=== PATIENT | female | born 1940 | race Caucasian/White ===

== ENCOUNTER 2019-01-07 10:11 | Inpatient (IN) | payer MEDICARE, SELFPAY ==
[2018-12-31 09:53] VITALS: BMI 22.3
[2019-01-07] VITALS (11 sets, daily range): BP systolic 106–167; BP diastolic 51–73; PULSE 70–81; RESP 12–16; TEMP 36.2–37.1; O2SAT 93–99; BMI 22.0
--- NOTE | 2019-01-07 | DI.RAD.S_ITS ---
PROCEDURE: [id number] W PEL IF PERFORMED INDICATIONS: INTRA OPERATIVE LEFT HIP TECHNIQUE: AP pelvis with lateral view(s) of the left hip(s). COMPARISON: [facility], CR, XR HIP W PEL IF DONE LT 2V, 01/07/2019, 15:45. FINDINGS: Bones: No fractures or dislocations. Pelvic ring appears intact. No suspicious bony lesions. The study shows expected intraoperative placement of sizing devices for preparation in anticipation of placement of the final components of left total hip arthroplasty. Soft tissues: The visualized bowel gas pattern is normal. No suspicious soft tissue calcifications. IMPRESSION: Normal intraoperative preparation for placement of final components of left total hip arthroplasty. Please also refer to subsequent views of the postoperative left hip establishing normal alignment. Dictated by: Teto Roach M.D. on 01/07/2019 at 17:18 Approved by: Teto Roach M.D. on 01/07/2019 at 17:19
--- NOTE | 2019-01-07 07:00 | DI.RAD.S_ITS ---
PROCEDURE: XR HIP W PEL IF DONE LT 2V INDICATIONS: post op TECHNIQUE: AP pelvis with lateral view(s) of the left hip(s). [facility] LATERAL HIP LEFT, 07/29/2018, 9:58. FINDINGS: Bones: No fractures or dislocations. Pelvic ring appears intact. No suspicious bony lesions. Soft tissues: The visualized bowel gas pattern is normal. No suspicious soft tissue calcifications. IMPRESSION: Left hip arthroplasty shows no evidence of device loosening or disruption. Normal alignment. Dictated by: Teto Roach M.D. on 01/07/2019 at 16:10 Approved by: Teto Roach M.D. on 01/07/2019 at 16:11
[2019-01-07] MEDS: VANCOMYCIN 1,000 MG/200 ML PIGGYBACK 200 MG IV (11:01)
[2019-01-07] MEDS: PREGABALIN 75 MG CAPSULE PO (11:01)
[2019-01-07] MEDS: ACETAMINOPHEN 325 MG TABLET 975 MG PO ×2 (11:02→20:33)
[2019-01-07] MEDS: MELOXICAM 7.5 MG TABLET 15 MG PO (11:02)
[2019-01-07] MEDS: LACTATED RINGERS 1,000 ML 42 ML IV ×2 (11:07→13:23)
--- NOTE | 2019-01-07 11:57 | P.OP_ITS ---
Operative Date/Time/Diagnoses Date of procedure: 01/07/19 Time of procedure: 12:31 Pre-op diagnosis: left hip OA Post-op diagnosis: same Procedure & Clinicians Procedure: left total hip arthroplasty Same procedure as scheduled: Yes Indications: The patient has had progressively worsening left hip pain with radiographic changes consistent with arthritis. Non-operative management has failed and the patient has requested total hip replacement. The risks, benefits and alternatives to surgery were discussed with the patient prior to proceeding. Risks discussed included, but were not limited to, failure to relieve pain, leg length discrepancy, dislocation, stiffness, infection, nerve damage, deep venous thrombosis, pulmonary embolism, stroke, coma, heart attack, permanent paralysis and , as well as the potential need for eventual revision of the prosthetic. Surgeon: Noy Talley Consumer Safety Inspector: Sachin Rojas Anesthesia Type: General and Spinal Operative Notes Findings: Severe left hip osteoarthritis, good stability Closure Type: primary Specimen(s): none sent Prosthetic devices, grafts, tissues, transplants, or devices: Talley and Nephew 46 mm R3, size 3 anthology, 32 -3 femoral head Estimated Blood Loss (mL): 250 Blood products transfused: none Procedure in detail: The patient was brought to the operating room. Patient was carefully positioned in the supine position. Time-out was performed and antibiotics were given. Anesthesia was induced. She was positioned in the on the table in order to allow hyperextension of the hip. The left lower extremity was prepped and draped in a standard sterile fashion. An anterior left hip incision was made 1 fingerbreadth lateral to the anterior superior iliac spine and extended distally towards the greater trochanter. Dissection was carried out through skin and subcutaneous tissues. The skin and subcutaneous tissues were carefully injected with Lidocaine with epi. Superficial hemostasis was achieved. The fascia over the tensor fascia nanda was defined and incised with a knife. Two Allis clamps were used to grasp the fascia. Tensor fascia nanda was retracted laterally. A gelpi retractor was placed. Dissection was carried out down along the neck. The circumflex vessels were carefully identified and cauterized with the Aqua Mantis. There was good visualization of the femoral neck. A Cobra was placed superior to the neck and the gluteus fibers were carefully stripped from that superior aspect of the capsule. A 2nd retractor was placed along the inferior aspect of the neck. The rectus insertion along the capsule was partially released. A 3rd retractor that was then gently placed over the rim of the acetabulum under the rectus. Capsule was carefully incised and released from the intertrochanteric line circumferentially superior to the mid sagittal line and inferiorly to the mid sagittal line until the lesser trochanter was palpable. A tag stitch was placed both in the superior and inferior limb of the capsular insertion. Along the acetabulum capsule was also released up to the mid sagittal 12:00 position. A portion of the labrum was resected. A saw was used to perform an osteotomy at the level of the intertrochanteric line and the junction of the superior femoral neck leaving approximately 1 finger breath of residual inferior neck above the lesser trochanter. A 2nd cut was made along the femoral neck at the base of the head and a napkin ring of neck was removed. Corkscrew was placed in the femoral head and the head was removed without difficulty. Retractors were then repositioned around the acetabulum. Residual labrum was resected and additional osteophytes were removed. A reamer that was 4 mm below the templated size was placed by hand in the acetabulum and it was reamed to centralize the acetabulum. It was then reamed up to 2 under the templated size and fluoroscopy was brought in to confirm the position of the reaming and depth of reaming. I reamed 1 under the anticipated size and touched the rim with line to line reaming. A trial cup was placed and noted that it was appropriately sized and fluoroscopy confirmed position and depth. The component was open and inserted without difficulty fluoroscopic imaging was used to confirm that the cup had been adequately seated and was well positioned. Neutral poly trial liner was placed. The cup was tested and noted to be stable. Attention was then directed to the femur. The femur was gently hyperextended additional capsular release was performed as needed in order to allow adequate visualization of the proximal femur with elevation of the femur. Patient was placed in a hyperextended slightly adducted position with maximum external rotation. Box osteotome was used to check for any residual neck as well as sclerotic bone along the trochanter. [place] pepper was placed in the femur. Additional broaching was performed. Canal finder was used to determine the alignment of the canal and position. Size 1 broach was placed. The canal was then appropriately broached up to the templated size as long as there was adequate stability of the broach and serial advancement of the broach without excessive impingement. Specific attention was directed at avoiding varus attempting to direct the distal aspect of the broach more anteriorly and avoiding excessive anteversion. Trial reduction showed acceptable range of motion, good stability, no posterior impingement, church of leg length and appropriate lateral shuck. I also hyperflexed the hip and checked that there was no impingement anteriorly and there was good stability with flexion, adduction and internal rotation. Final neutral poly was placed without difficulty. Marcaine and Exparel were injected.. The stem was placed without difficulty. Repeat trial reduction and x-ray showed acceptable overall position, length, and no evidence of the femoral fracture. Final head was placed. Wound was meticulously irrigated with normal saline. The hip was reduced and additional Exparel and Marcaine were injected. The capsule was closed with interrupted nonabsorbable sutures. The fascia of the tensor was closed with interrupted and running Vicryl. No drain was placed. Any tensor fascia nanda muscle that appeared to be contused or injured which was a minimal amount was carefully resected. Capsule around the tensor was injected with Exparel and Marcaine. The skin was closed with barbed stitches for the subcutaneous tissue and skin. We also used surgical glue. The wound was dressed sterilely. Brief Betadine soak was also used and was meticulously irrigated w ith normal saline. Patient was transferred to recovery room in satisfactory condition. Complications: none Post-operative Condition: stable Disposition: Acute Care Plan for aftercare: The patient will be maintained on a standard total hip replacement protocol with weight bearing as tolerated and anterior hip precautions. The patient will receive Aspirin and sequential compression devices for DVT prophylaxis. The patient will be discharged home when safe for the home environment.
--- NOTE | 2019-01-07 11:57 | PM.PREOP ---
Pre-operative Note Interval Note History & Physical reviewed/Exam performed by Physician: Yes Changes to H&P: No
[2019-01-07] MEDS: CEFAZOLIN 2 GM/100 ML FROZ.PIGGY IV ×2 (12:15→20:30)
[2019-01-07] MEDS: TRANEXAMIC ACID 1,000 MG VIAL 1000 MG INJ ×2 (12:39→14:52)
--- NOTE | 2019-01-07 13:02 | SUR.OPER ---
Supine, head on pillow, torso on pink pad positioner. Iliac crest at flex of foot end of table. Gel roll under operative hip. Both arms secured on arm boards <90 degrees abduction.
[2019-01-07] MEDS: SODIUM CHLORIDE IRRIG SOLUTION 250 ML, POVIDONE-IODINE SPONGE STICKS 1 APPLIC IRR (13:09)
[2019-01-07] MEDS: BUPIVACAINE 0.25% W/ EPI 30 ML VIAL 60 ML INJ (13:09)
[2019-01-07] MEDS: BUPIVACAINE LIPOSOME 266 MG/20 ML VIAL INJ (13:10)
[2019-01-07] MEDS: SODIUM CHLORIDE IRRIG SOLUTION 250 ML, EPINEPHrine 1 MG IRR (13:13)
--- NOTE | 2019-01-07 16:46 | PC.NURSE ---
Pt arrived from PACU alert/oriented. Aquacell Dsg to anterior left hip CDI IVF into right hand infusing as per orders. Bilat.calf SCD in place Orineted to room ans call system. Call light w/in reach, bed alrm on for pt safety.
[2019-01-07] MEDS: OXYCODONE IR 5 MG TABLET PO (17:22)
[2019-01-07] MEDS: LACTATED RINGERS 1,000 ML 125 ML IV (17:23)
[2019-01-07] MEDS: ASPIRIN EC 81 MG TABLET PO (20:30)
--- NOTE | 2019-01-07 22:49 | PC.NURSE ---
A&OX3. 93%RA. CMS+. L. hip dressing CDI. 1PA to the BR. pt walked around the room. PIV. pt drinking lots of fluid. pt voiding without difficulty. pain controlled oxycodone. call light in reach. bed alarm active.
[2019-01-08 00:10] VITALS: BP 110/48; PULSE 75; RESP 16; TEMP 36.6; O2SAT 97
[2019-01-08] MEDS: CEFAZOLIN 2 GM/100 ML FROZ.PIGGY IV (03:34)
[2019-01-08 05:15] VITALS: BP 114/62; PULSE 97; RESP 16; TEMP 36.5; O2SAT 97
[2019-01-08 06:17] LABS: Hematocrit 32.4 % (36-46); Hemoglobin 10.6 g/dL (12.0-16.0)
--- NOTE | 2019-01-08 07:46 | PM.DS.1 ---
History of Present Illness History of Present Illness Date Patient Seen: 01/08/19 Time Patient Seen: 07:46 Chief complaint: [id number] Narrative: Pain is moderate. Denies fever chills. No nausea vomiting. Patient does have assistance at home. Patient has been up using the restroom. She has 3 steps into her house. Discharge Providers Provider Date of admission: 01/07/19 10:11 Discharge Date: 01/08/19 Consults: 01/07/19 07:00 Consult to Anesthesiology Routine Comment: Consulting Provider: Anesthesiologist Reason for consultation: Regional block for post operative pain control 01/07/19 16:30 Consult to Discharge Planning Routine Comment: Consult to Physical Therapy Evaluate & Treat Comment: Physician Instructions: post op JAVIER protocol Consult to Respiratory Therapy Evaluate & Treat Comment: Physician Instructions: Evaluate and treat Discharge provider: Yoseph Cordero PA-C Summary Hospital Course Discharge Diagnosis: Status post left total hip arthroplasty secondary to severe left hip DJD Hospital Course: Procedure: left total hip arthroplasty Same procedure as scheduled: Yes Indications: The patient has had progressively worsening left hip pain with radiographic changes consistent with arthritis. Non-operative management has failed and the patient has requested total hip replacement. The risks, benefits and alternatives to surgery were discussed with the patient prior to proceeding. Risks discussed included, but were not limited to, failure to relieve pain, leg length discrepancy, dislocation, stiffness, infection, nerve damage, deep venous thrombosis, pulmonary embolism, stroke, coma, heart attack, permanent paralysis and , as well as the potential need for eventual revision of the prosthetic. Surgeon: Noy Talley Bakery Worker: Sachin Rojas Anesthesia Type: General and Spinal Operative Notes Findings: Severe left hip osteoarthritis, good stability Closure Type: primary Specimen(s): none sent Prosthetic devices, grafts, tissues, transplants, or devices: Talley and Nephew 46 mm R3, size 3 anthology, 32 -3 femoral head Estimated Blood Loss (mL): 250 Blood products transfused: none Patient admitted to the hospital for left total hip arthroplasty. Patient consented to the same. Patient taken to the operating room underwent left total hip arthroplasty. Patient back in her room recovering well as in stable condition. Status at Discharge Cognitive/behavioral status at discharge: at baseline, oriented Functional status at discharge: uses cane/walker Overall status at discharge: patient is progressing back to baseline Time Spent with Patient Time spent: Less than 30 minutes Exam Vital Signs (past 8 hours): - 01/08/19 00:10 01/08/19 05:15 Temperature 97.8 F 97.7 F Pulse Rate 75 97 H Respiratory Rate 16 16 Blood Pressure 110/48 L 114/62 Pulse Oximetry 97 97 Oxygen Delivery Method Room Air Oxygen Flow Rate 0 Narrative Exam Narrative: Pleasant 78-year-old female resting comfortably in bed in no apparent distress. Left hip dressing is clean, dry and intact. Left lower leg is warm and dry. SCDs on and functioning. Motor function is intact distally. Sensation grossly intact to light touch. Objective Labs Result Diagrams: 01/08/19 05:55 Labs: Laboratory Results - last 24 hr 01/08/19 05:55 Hgb 10.6 L Hct 32.4 L Discharge Plan Discharge Plan Patient Disposition: Home Discharge comment: DC home today after PT Discharge Med Rec/Prescriptions Prescriptions: Continued levothyroxine 150 mcg Tablet 150 mcg PO DAILY RF: 0 estradiol [Vagifem] 10 mcg Tablet 10 mcg VAGINAL 2XW RF: 0 Follow up/Referrals: Noy Talley MD [Physician] - (1 wk) Provider Discharge Instructions Diet: Diet as Tolerated Activity: Weightbearing as tolerated, anterior hip precautions Cold/Heat Therapy: Apply ice as needed Other treatments: Aspirin 81 mg b.i.d., Tylenol 500 mg q.4 hours, ibuprofen 400 mg q.4 hours Skin/Wound/Dressing Care Report to your healthcare provider any signs of infection, such as:: chills, fever, increased pain, unusual drainage and unusual redness Dressing: Keep dressing clean and dry Quality VTE Deep Vein Thrombosis/Pulmonary Embolism Present on Admission: No
[2019-01-08] MEDS: IBUPROFEN 600 MG TABLET PO (08:19)
[2019-01-08] MEDS: ASPIRIN EC 81 MG TABLET PO (08:19)
[2019-01-08] MEDS: DOCUSATE 100 MG CAPSULE PO (08:19)
[2019-01-08] MEDS: ACETAMINOPHEN 325 MG TABLET 975 MG PO (08:19)
[2019-01-08 08:33] VITALS: BP 122/63; PULSE 74; RESP 14; TEMP 36.9; O2SAT 94
--- NOTE | 2019-01-08 09:11 | CM.DANOTE ---
DCP Assessment: EMR reviewed. Patient is a 78 yr old female who lives at home with her . Patient PC is not listed. patient had a L JAVIER preformed by Dr. Talley. patient is completely I at baseline. CM met with patient at the bedside and explained CM/RN role. Patient was alert and oriented. patient stated she has a shower chair and a FWW at home. Insurance:1st payer: Medicare. 2nd payer: AARP Plan: Pending PT evaluations plan is to D/c home when medically stable. Patient has her daughter Kelsea her to help her with recovery and OP PT set up with [facility] for next Sunday01/15/2019. No identified D/C planning needs noted at this time. Uzma Talley RN Discharge Planning/Care Management Advanced directive, confirm from FAMILY Start: 01/07/19 16:37 Freq: Q24H Status: Active Protocol: Document 01/07/19 16:30 KMD (Rec: 01/07/19 16:50 KMD [id number]) Advance Directive, confirm on record Time 16:49 Person contacted Patient Copy received No Document 01/07/19 16:37 HCW (Rec: 01/07/19 19:03 HCW [id number]) Advance Directive, confirm on record Time 16:49 Person contacted Patient Copy received No CM Discharge Assessment Start: 01/08/19 09:08 Freq: Status: Active Protocol: Document 01/08/19 09:08 HS (Rec: 01/08/19 09:11 HS [id number]) Discharge Planning Assessment Assigned Carpet Mechanic Uzma Talley RN DPOA/Assigned Designee Name Kelsea ( daughter) Contact Information [phone] Advance Directives? Yes: Contained within their will History Provided By Patient Prior Living Arrangements House Household Members spouse Comment Daughter will be staying with patient for a month Type of transporation used prior to Drives own vehicle admit Independent with ADL's Yes Is patient alert and oriented? Yes Caregiver for Another No Patient/Family Preference OP PT Therapy Discharge Plan Home Transportation Arrangement Daughter will pick patient up. Whiteboard Updated in Patient Room with Yes name and ext. # of Carpet Mechanic Review Status In Process Next Review Type Continued Stay Review Pre-Anesthesia Assessment Start: 12/31/18 09:53 Freq: Status: Active Protocol: Document 12/31/18 09:53 CAB (Rec: 12/31/18 10:08 [facility] [id number]) Pre-Anesthesia Assessment PAC Comment Spoke w/PCP Dr. Rivera re abnormal pre-op EKG-LBBB. Pt is very active, denies any cardiac symptoms of CP, SOB, lightheadedness, dizziness. Last EKG greater than 20 year ago. PCP has no concerns for pt to go forward with surgery. Reviewed EKG and above information with Dr. Delaney, ok to proceed Patient Also Known As (AKA) Neda Patient Information Reviewed Via Chart Review Diagnostic Results BMP/CMP,CBC,EKG,Urinalysis Comment Outside EKG/labs scanned to record Primary Care Provider Aubrie Rivera Seen Specialist in Last 12 Months Yes Specialist Seen Orthopedist Primary Language Tam[place] Childcare Teacher Required No Height 160.02 cm Weight 57.153 kg Body Mass Index (BMI) 22.3 Hearing Ability Hard of Hearing,Use of Hearing Aid Visual Assist Glasses Dentition Type Teeth, Natural Present Barriers to Learning None Hx Anesthesia Reactions No Hx Family Anesthesia Reaction Yes: Granddaughter-Trouble breathing s/p surgery, required intubation Hx Malignant Hyperthermia No Hx Blood Transfusions No Anesthesia Review Requested No: Reviewed pre-op EKG w/Dr. Delaney alcohol intake current alcohol intake frequency 0-2 drinks per day Smoking Status Never smoker Substance Use Type does not use Pain Present Pain Reported Musculoskeletal Symptoms Abnormal Gait,Difficulty Walking,Joint Pain,Numbness History of Falling (Recent or History of No ) Patient is completely paralyzed or No completely immobile Prosthesis or Orthotic Device Cane Mental Status Oriented to own ability Is patient on oxygen? No Does patient have SOLANO/SOB No Hx Sleep Apnea No Currently Taking a Beta Anusha No Can You Climb a Flight of Stairs Without Yes SOB Hx Chest Pain No Hx SOB No Hx Syncope or Dizziness No Anti-Coagulant Therapy No Has a Assortment Planner No Cardiac Testing No Hx Pacemaker/ICD No Pacemaker Rep Required? No Cardiac Clearance Received Not Applicable Diet Type At Home Regular dysphagia No Bladder Pattern Nocturia Urinary Catheter Present No Hx Urinary Self Catheterization No Diabetes No HgbA1C 5.5 Date 12/05/18 Patient No Lactating No Hx Drug Resistant Organism No Presence of External or Internal Medical Yes: Bilateral eye lens Devices Have you traveled outside the [facility] in the last 30 days? Marital Status Lives With spouse Prior Living Arrangements House Number of Floors (Floors) One Floor Support System Friend(s),Spouse Does the Patient Have Assistance After Yes Surgery Patient Discharge Plan Description Return Home Comment Pt advised 1 night length of stay per surgeon's office Feels Safe in Current Environment Yes Been Physically Hurt or Threatened By a No Person in Current Environment Do you have thoughts of harming yourself None or others? Are you currently considering suicide? No Do you have a plan to hurt yourself or No Plan others? Do You Have Any Spiritual Beliefs That No May Affect Your HC Choices? Do You Have Any Cultural Practices That No May Affect Your HC Choices? Comment Yogi Who Can We Speak to About Patient's Care Family, friends Identifying Code for Release of Patient Declines to issue Information Health Care Proxy/Next of Kin Grzegorz () Health Care Proxy Emergency Contact Name Grzegorz () Emergency Contact Advance Directives? Yes: Contained within their will Power of Electrical & Instrumentation Supervisor Yes Power of Electrical & Instrumentation Supervisor Name Grzegorz () Power of Electrical & Instrumentation Supervisor PAC Instructions Do not shave/clip surgical site,Durable medical equipment ,Medications to take/avoid, Nasal antibiotic,No ETOH/ petroleum product on skin DOS, NPO,Post-op transportation,Pre -surgical wash,Sturdy shoes/ comfortable clothes,Do not bring valuables and remove jewelry
[2019-01-08 09:27] VITALS: O2SAT 98
--- NOTE | 2019-01-08 11:39 | PT.IIE ---
Current Diagnoses Unilateral primary osteoarthritis, left hip (01/07/19) Surgery Performed Operation Date: 01/07/19 12:15 Actual Procedures p Total Hip Arthroplasty/Anterior Approach(Left) - Noy Talley MD Surgical History (Last Updated 01/03/19 @ 13:18 by Carmita Mac, RN) History of right cataract surgery (Acute) Hx of blepharoplasty (Acute) Hx of tonsillectomy (Acute) Hx of tubal ligation (Acute) Medical History (Last Updated 01/03/19 @ 13:19 by Carmita Mac RN) Diverticulitis (Acute) Hypothyroid (Acute) LBBB (left bundle branch block) (Acute) Numbness (Acute) Osteoarthritis (Acute) Physical Therapy Inpatient Evaluation/Re-Eval M1 PT/OT-IP Prior Functional Status Start: 01/08/19 08:07 Freq: NEEDED Status: Discharge Protocol: Document 01/08/19 09:22 (Rec: 01/08/19 11:38 [id number]) Medical Review Prior Functional Status Medical History Reviewed Yes Diet/Fluid Consistency Regular Communication no deficits noted. able to make needs known Mobility and Gait independent with home and community mobility without AD in general. But she did use [facility] for long distance walking occasionally due to hip pain. Pt also went to water aerobic class/ yoga class 2-4x/week. Activities of Daily Living and IADL's Independent with ADLs and IADLs Social History Household Members spouse Living Arrangements House Number of Floors (Floors) One Floor Number of Stairs To Enter/Railing? 3 MICHEL with L rail. Home Environment Walk in Shower Home Equipment Front Wheel Walker,Straight Cane,Bedside Commode,Shower Seat with Backrest,Hand Held Shower Employment Status Retired Additional Social History Comment Pt lives with her in [facility] but he will be out of town for the next few days. Pt does have friends to pick her up after d/c and her dtr will stay with pt until pt 's spouse comes back. Pt will attend PT at [facility] starting from next week. M2 PT-IP Current Condition Start: 01/08/19 08:07 Freq: NEEDED Status: Discharge Protocol: Document 01/08/19 09:22 (Rec: 01/08/19 11:38 [id number]) Physical Therapy Current Condition Current Condition Evaluation Date 01/08/19 Treatment Diagnosis L JAVIER (ant), difficulty in walking Onset Date 01/07/19 Precautions Anterior Hip Precautions No Hip Extension,No Hip External Rotation Weight Bearing Status Weight Bearing Status Weight Bear as Tolerated M3 PT-IP Subjective Start: 01/08/19 08:07 Freq: NEEDED Status: Discharge Protocol: Document 01/08/19 09:22 (Rec: 01/08/19 11:38 [id number]) Subjective Physical Therapy Visit Type Type Initial Evaluation Visit Start Time 09:22 Visit Stop Time 09:52 Total Visit Minutes 30 Notes co-tx with SPT William 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 Therapy Pain Assessment Pain When Pain Assessed During Mobility Pain Present Pain Present Pain Reported Location left hip5 Intensity 5 Scale Used Numeric (1 - 10) Description Acute Pain Management Techniques Modification of Treatment, Timing of Activity with Medications M4 PT-IP Mobility and Gait Start: 01/08/19 08:07 Freq: NEEDED Status: Discharge Protocol: Document 01/08/19 09:22 (Rec: 01/08/19 11:38 [id number]) PT-Bed Mobility Assessment Supine to Sit Supine to Sit Standby Assistance Scooting Scooting to Edge of Bed Standby Assistance PT-Transfer Assessment Sit to and From Stand Sit to and from Stand Contact Guard Assistance Equipment Transfer Assistive Device Gait Belt,Front Wheeled Walker Orthotic/Prosthetic Devices or Brace: No Transfers Transfer Destination Bed,Chair Transfer Technique Stand Step Pivot Transfer Ability Level of Assist Contact Guard Assistance Comments Mobility Comments Pt was in bed upon assessment. Pt used her R ankle to unweigh her LLE towards L side EOB, followed by using gait belt to place LLE on the floor . Pt complete STS with B UE pushed off from bed. She then amb ~212 ft with FWW with step to gait. Pt progress to step over gait as distance increases with close to even weight distribution on both LEs. However, pt needed cues to avoid excessive hip IR. She also went back to bedside chair with safe stand to sit transfer with the use of stagger stance (L at front) and proper hand placements on chair armrests. Gait Assessment Gait Gait Assistance Required: Standby Assistance Distance (Feet) 212 Able to Maintain Weight Bearing Status Yes During Gait Assistive Devices Assistive Device Gait Belt,Front Wheeled Walker Gait Deviations General Gait Pattern Antalgic,Decreased Stride Length,Decreased Feet Clearance,Flexed Trunk,Step-to Gait Factors Limiting Gait Function Factors Limiting Gait Function Decreased Activity Tolerance, Decreased Strength,Limited Range of Motion,Pain,Poor Balance,Poor Safety Awareness Comments Gait Comments see mobility comments. Pt needed cues to keep her foot pointing neutral and avoiding excessive hip internal rotation. Stair Climbing Assessment Evaluation Level of Assist On Stairs Contact Guard Assistance, Minimal Assistance Devices Stair Climbing Assistive Devices Left Railing Technique/Endurance Stair Climbing Direction Ascend and Descend Stair Climbing Technique Step to Step Number of Steps Climbed 3 Query Text: Stair Climbing Set # Repetitions (reps) 2 Comments Stair Climbing Comments Pt completed stair climbing with L rail and VP CARDIOVASCULAR on R side. Educated pt to lead with good leg for ascending and lead with surgical leg for descending. Pt led with L leg once for descending and she buckled with her L LE but able to recover to standing position. She did c/o slight increase in achy pain but able to cont stair climbing and amb back to room. PT-Balance Assessment Sitting Balance and Reactions Static Sitting Balance Ability Normal Dynamic Sitting Balance Ability Normal Standing Balance and Reactions Static Standing Balance Ability Normal Dynamic Standing Balance Ability Normal Device Used FWW M5 PT-IP Objective Assessments Start: 01/08/19 08:07 Freq: NEEDED Status: Discharge Protocol: Document 01/08/19 09:22 (Rec: 01/08/19 11:38 [id number]) Orientation Orientation/Cognition Level of Alertness Alert Orientation Name,Age,Birthday,Month,Date, Year,Day of Week,Place, Situation Language Function Ability No Deficits Noted Safety Awareness Understands Safety Issues Memory Description No Deficits Noted Gross Range of Motion Upper Extremity ROM Assessment Within Functional Limits Lower Extremity ROM Assessment Left Impaired Strength Upper Extremity Strength Assessment Within Functional Limits Lower Extremity Strength Assessment Left Impaired Hip 4-/5 Coordination Assessment Gross Coordination Gross Coordination WNL Sensation Assessment Sensation Gross Sensation WNL Muscle Tone Muscle Tone WNL Yes M6 PT-IP Treatment Start: 01/08/19 08:07 Freq: NEEDED Status: Discharge Protocol: Document 01/08/19 09:22 (Rec: 01/08/19 11:38 [id number]) Physical Therapy Treatment Education Education Provided Precautions,Weight Bearing Status,Post-Op Packet,Safety Other Treatments Other Treatment Performed adjusted pt's walker height education on stair climbing to use pillow to avoid excessive hip IR in supine position. M7 PT-IP Assessment and Plan Start: 01/08/19 08:07 Freq: NEEDED Status: Discharge Protocol: Document 01/08/19 09:22 HH (Rec: 01/08/19 11:38 [id number]) PT Summary Assessment and Plan Potential Rehabilitation Potential Excellent Status of Condition at Evaluation Stable Summary Progress Towards Goals Safe For Discharge Assessment Summary Pt is a low complexity who is s/o L JAVIER (anterior approach) yesterday. Upon assessment, pt appears to have a very good understanding of postop precautions and rehab exercises. Educated on pt to use R ankle/ gait belt to mobilize her LLE for bed mobility, and instructed pt to use pillow to avoid excessive hip IR in bed. She did need cues to keep her LLE in neutral during gait training. Pt overall did very well with amb and stair climbing. Pt will have friends and dtr for 24/7 assistance at home as needed until her spouse comes back. She will also benefit from attending outpatient PT to improve mobility and strength. Frequency of Treatment Frequency Of Treatment Discharge Discharge Recommendations PT Discharge Recommendations Home with 24/7 Assist, Outpatient PT
== END 2019-01-08 11:16 | disposition home or self-care (01) | DRG 470 ==
PROVIDERS: Admitting Provider Orthopaedic Surgery; Visit Provider Orthopaedic Surgery
PROC: 0SRB02A Replacement of Left Hip Joint with Metal on Polyethylene Synthetic Substitute, Uncemented, Open Approach (ICD-10-PCS; CPT 27130; principal; 2019-01-07 12:15)
DX: M16.12 Unilateral primary osteoarthritis, left hip (principal); E03.9 Hypothyroidism, unspecified; I44.7 Left bundle-branch block, unspecified
CPT/HCPCS: 36415; 73502; 73503; 76000; 85014; 85018; 94760; 97161; 97530; C1776; C9290; J0171; J0690; J1100; J1170; J2250; J2405; J2704; J3010